=== PATIENT | male | born 1945 | race Caucasian/White ===

== ENCOUNTER 2017-12-01 17:13 | Emergency (ER) | payer OTHER ==
[~2017-12-01] VITALS: Ht 170.2 cm; Wt 93.6 kg
[2017-12-01 17:17] VITALS: TEMP 36.5; Ht 170.2 cm; Wt 93.6 kg
[2017-12-01 18:09] LABS: BASO % 0.3 %; BASO ABS # 0.02 K/uL (0-0.2); EOS % 2.3 %; EOS ABS # 0.14 K/uL (0-0.5); HEMATOCRIT 49.9 % (42-52); HEMOGLOBIN 16.8 g/dL (14.0-18.0); IG# 0.01 K/uL (0.00-0.02); LYMPH % 30.3 %; LYMPH ABS # 1.83 K/uL (1.2-3.4); MEAN CELL VOLUME 90.9 fL (80-100); MEAN CORPUSCULAR HEMOGLOBIN 30.6 pg (25-34); MEAN CORPUSCULAR HGB CONC 33.7 g/dl (32-36); MEAN PLATELET VOLUME 10.4 fL (7.4-10.4); MONO % 10.8 %; MONO ABS # 0.65 K/uL (0.11-0.59); NEUT % 56.1 %; NEUT ABS # 3.39 K/uL (1.4-6.5); PLATELET COUNT 157 K/uL (130-400); RED CELL DISTRIBUTION WIDTH CV 14.2 % (11.5-14.5); RED CELL DISTRIBUTION WIDTH SD 47.6 fL (36.4-46.3); WHITE BLOOD COUNT 6.04 K/uL (4.8-10.8)
[2017-12-01 18:17] LABS: INR 3.3 (0.9-1.1); PTT PATIENT 36.6 SECONDS (21.0-31.0)
[2017-12-01 18:33] LABS: CALCIUM 9.1 mg/dl (8.5-10.1); CREATININE 1.26 mg/dl (0.60-1.40); POTASSIUM 4.2 mmol/L (3.5-5.1)
[2017-12-01 18:36] LABS: TOTAL PROTEIN 7.3 gm/dl (6.4-8.2)
[2017-12-01] MEDS ORDERED: PRVC10 PO (18:53)
[2017-12-01] MEDS ORDERED: ASPI81TA28 PO (18:53)
[2017-12-01] MEDS ORDERED: LISI-461 PO (18:53)
[2017-12-01] MEDS ORDERED: WARF7.5T PO ×2 (18:53)
--- NOTE | 2017-12-01 19:14 | DIAGNOSTIC IMAGING REPORT ---
ABD/PELVIS WITHOUT FOR STONE CT DOSE: 1475.07 mGy.cm HISTORY: Hematuria hematuria TECHNIQUE: Multiaxial CT images of the abdomen and pelvis were performed without the use of intravenous and oral contrast according to the standard department stone protocol. A dose lowering technique was utilized adhering to the principles of ALARA. COMPARISON STUDY: None. FINDINGS: The lung bases are clear. The unenhanced liver, gallbladder, spleen, pancreas, and adrenal glands are unremarkable. No renal stones or hydronephrosis. No bowel wall thickening or obstruction. The pelvic organs are unremarkable. No suspicious lytic or blastic osseous lesions. Moderate sigmoid diverticulosis on a chronic basis. No evidence for acute diverticulitis. Bladder is midline. Prostate is mildly enlarged. Operative changes consistent with a left inguinal hernia repair present. IMPRESSION: No renal stones or hydronephrosis. Chronic sigmoid diverticulosis. Moderate prostatic enlargement. The above report was generated using voice recognition software. It may contain grammatical, syntax or spelling errors. Electronically signed by: Shola Jordan M.D. 12/01/2017 7:12 PM Dictated Date/Time: 12/01/2017 7:11 PM
[2017-12-01 20:02] VITALS: BP 132/80; PULSE 49; O2SAT 94
[2017-12-01] MEDS ORDERED: CIPROFLOXACIN 500 MG TAB PO STA ×2 (20:05→20:06)
[2017-12-01] MEDS ORDERED: CIPR-255 PO (20:14)
--- NOTE | 2017-12-01 22:31 | EMERGENCY ROOM VISIT NOTE ---
History Report prepared by Tara: Emmanuel Simmons Under the Supervision of: Dr. Juan Miguel Unger M.D. First contact with patient: 17:46 Chief Complaint: HEMATURIA Stated Complaint: BLOOD IN URINE Nursing Triage Summary: I noticed blood in my urine around noon. I went to [facility] and saw a PA. They took a urine sample I didnt have any clots at that time but now I do. History of Present Illness The patient is a 72 year old male who presents to the Emergency Room with complaints of persistent hematuria since 1200 today. He notes there was blood in his urine at noon today, so he went to [facility] outpatient clinic to be evaluated. They obtained a urine sample, though they did not give him any medication. He was instructed to go back tomorrow morning for blood work. He states that he is incontinent of his urine with mild leaking. He states the blood was not initially thick or clotted, though by 1500 he noticed blood clots in his underwear. He is currently taking Warfarin. He reports a history of a stroke 30 years ago due to a PFO. His INR is currently 3.3 and he is normally targeted for 2-3. He denies any pain or burning with urination. He denies any bleeding or bruising to any other area of his body. He denies any leg swelling. Pt denies LOC, headache, fevers, chills, diaphoresis, visual changes, neck pain , chest pain, breathing difficulties, nausea, vomiting, abdominal pain, back pain, melena, hematochezia, numbness, weakness, rash, or other complaints. Source of History: patient Onset: since 1200 today Position: other (penis-urethra) Quality: other (hematuria) Timing: other (persistent) Note: He denies any leg swelling, pain or burning with urination. He denies any bruising and bleeding in other areas of body. Review of Systems See HPI for pertinent positives and negatives. A total of ten systems were reviewed and were otherwise negative. Past Medical & Surgical Medical Problems: (1) Back contusion (2) PFO (patent foramen ovale) (3) Stroke Family History No pertinent family history Social History Smoking Status: Never Smoker Smokeless Tobacco Use: No Alcohol Use: none Drug Use: none Marital Status: single Housing Status: lives alone Occupation Status: employed Current/Historical Medications Scheduled Aspirin (Aspirin Ec), 81 MG PO DAILY Ciprofloxacin Hcl (Cipro), 500 MG PO BID Lisinopril (Lisinopril), 10 MG PO DAILY Pravastatin Sod (Pravastatin Sodium), 10 MG PO DAILY Warfarin Sodium (Coumadin), 11.25 MG PO 2XWK Warfarin Sodium (Coumadin), 7.5 MG PO 5XWK Allergies Coded Allergies: No Known Allergies (Unverified , 12/01/17) Physical Exam Vital Signs Date Time Temp Pulse Resp B/P (MAP) Pulse Ox O2 Delivery O2 Flow Rate FiO2 12/01/17 20:02 49 20 132/80 94 Room Air 12/01/17 17:17 36.5 58 18 196/84 96 Room Air Physical Exam GENERAL: Awake, alert, well-appearing, in no distress HENT: Normocephalic, atraumatic. Oropharynx unremarkable. EYES: Normal conjunctiva. Sclera non-icteric. NECK: Supple. No nuchal rigidity. FROM. No masses. RESPIRATORY: Clear to auscultation. No wheezes. No rales. Normal respiratory effort. CARDIAC: Normal rate. Normal rhythm. No murmurs. No rubs. Extremities warm and well perfused. Pulses equal. No JVD. GI: Soft, non-distended. No tenderness to palpation. No rebound or guarding. No masses. RECTAL: Deferred. MUSCULOSKELETAL: Atraumatic. Chest examination reveals no tenderness. The back is symmetrical on inspection without obvious abnormality. There is no CVA tenderness to palpation. No joint edema. LOWER EXTREMITIES: Calves are equal size bilaterally and non-tender. No edema. No discoloration. NEURO: Normal sensorium. No sensory or motor deficits noted. SKIN: No rash or jaundice noted. Medical Decision & Procedures ER Provider Diagnostic Interpretation: Radiology results as stated below per my review and radiologist interpretation: ABD/PELVIS WITHOUT FOR STONE CT DOSE: 1475.07 mGy.cm HISTORY: Hematuria hematuria TECHNIQUE: Multiaxial CT images of the abdomen and pelvis were performed without the use of intravenous and oral contrast according to the standard department stone protocol. A dose lowering technique was utilized adhering to the principles of ALARA. COMPARISON STUDY: None. FINDINGS: The lung bases are clear. The unenhanced liver, gallbladder, spleen, pancreas, and adrenal glands are unremarkable. No renal stones or hydronephrosis. No bowel wall thickening or obstruction. The pelvic organs are unremarkable. No suspicious lytic or blastic osseous lesions. Moderate sigmoid diverticulosis on a chronic basis. No evidence for acute diverticulitis. Bladder is midline. Prostate is mildly enlarged. Operative changes consistent with a left inguinal hernia repair present. IMPRESSION: No renal stones or hydronephrosis. Chronic sigmoid diverticulosis. Moderate prostatic enlargement. The above report was generated using voice recognition software. It may contain grammatical, syntax or spelling errors. Electronically signed by: Shola Jordan M.D. 12/01/2017 7:12 PM Dictated Date/Time: 12/01/2017 7:11 PM Laboratory Results 12/01/17 17:54 Red Blood Count 5.49, Mean Corpuscular Volume 90.9, Mean Corpuscular Hemoglobin 30.6, Mean Corpuscular Hemoglobin Concent 33.7, Mean Platelet Volume 10.4, Neutrophils (%) (Auto) 56.1, Lymphocytes (%) (Auto) 30.3, Monocytes (%) (Auto) 10.8, Eosinophils (%) (Auto) 2.3, Basophils (%) (Auto) 0.3, Neutrophils # (Auto ) 3.39, Lymphocytes # (Auto) 1.83, Monocytes # (Auto) 0.65, Eosinophils # (Auto ) 0.14, Basophils # (Auto) 0.02 12/01/17 17:54 Test 12/01/17 17:20 12/01/17 17:54 Urine Color RED Urine Appearance TURBID (CLEAR) Urine pH 6.0 (4.5-7.5) Urine Specific [place] >= 1.030 (1.000-1.030) Urine Protein 2+ (NEG) Urine Glucose (UA) NEG (NEG) Urine Ketones NEG (NEG) Urine Occult Blood 3+ (NEG) Urine Nitrite NEG (NEG) Urine Bilirubin NEG (NEG) Urine Urobilinogen NEG (NEG) Urine Leukocyte Esterase NEG (NEG) Urine RBC >30 /hpf (0-4) Urine WBC 10-30 /hpf (0-5) Urine Epithelial Cells 0-5 /lpf (0-5) Urine Bacteria 1+ (NEG) White Blood Count 6.04 K/uL (4.8-10.8) Red Blood Count 5.49 M/uL (4.7-6.1) Hemoglobin 16.8 g/dL (14.0-18.0) Hematocrit 49.9 % (42-52) Mean Corpuscular Volume 90.9 fL (80-100) Mean Corpuscular Hemoglobin 30.6 pg (25-34) Mean Corpuscular Hemoglobin Concent 33.7 g/dl (32-36) Platelet Count 157 K/uL (130-400) Mean Platelet Volume 10.4 fL (7.4-10.4) Neutrophils (%) (Auto) 56.1 % Lymphocytes (%) (Auto) 30.3 % Monocytes (%) (Auto) 10.8 % Eosinophils (%) (Auto) 2.3 % Basophils (%) (Auto) 0.3 % Neutrophils # (Auto) 3.39 K/uL (1.4-6.5) Lymphocytes # (Auto) 1.83 K/uL (1.2-3.4) Monocytes # (Auto) 0.65 K/uL (0.11-0.59) Eosinophils # (Auto) 0.14 K/uL (0-0.5) Basophils # (Auto) 0.02 K/uL (0-0.2) RDW Standard Deviation 47.6 fL (36.4-46.3) RDW Coefficient of Variation 14.2 % (11.5-14.5) Immature Granulocyte % (Auto) 0.2 % Immature Granulocyte # (Auto) 0.01 K/uL (0.00-0.02) Prothrombin Time 34.1 SECONDS (9.0-12.0) Prothromb Time International Ratio 3.3 (0.9-1.1) Activated Partial Thromboplast Time 36.6 SECONDS (21.0-31.0) Partial Thromboplastin Ratio 1.4 Anion Gap 3.0 mmol/L (3-11) Est Creatinine Clear Calc Drug Dose 58.6 ml/min Estimated GFR () 66.1 Estimated GFR (Non- 57.0 BUN/Creatinine Ratio 20.3 (10-20) Calcium Level 9.1 mg/dl (8.5-10.1) Total Bilirubin 0.5 mg/dl (0.2-1) Direct Bilirubin 0.1 mg/dl (0-0.2) Aspartate Amino Transf (AST/SGOT) 20 U/L (15-37) Alanine Aminotransferase (ALT/SGPT) 31 U/L (12-78) Alkaline Phosphatase 70 U/L (45-117) Total Protein 7.3 gm/dl (6.4-8.2) Albumin 4.0 gm/dl (3.4-5.0) Laboratory results reviewed by me Medications Administered Medications (Trade) Dose Ordered Sig/Casey Route Start Time Stop Time Status Last Admin Dose Admin Ciprofloxacin (Cipro Tab) 500 mg NOW STAT PO 12/01/17 20:05 12/01/17 20:06 DC 12/01/17 20:28 500 MG ED Course 1817: The patient was evaluated in room C9. A complete history and physical exam was performed. 2004: Ordered Cipro 500 mg PO 2005: Ordered Cipro 500 mg PO 2015: I reassessed the patient at this time. He is feeling better and resting comfortably. I discussed the results and treatment plan with the patient. I answered all pertaining questions that he had. He expressed understanding and verbalized agreement. The patient will be discharged home. Medical Decision Triage Nursing notes reviewed. The patient's presentation and history were concerning for hematuria. Etiologies such as UTI, coagulopathy, malignancy, renal colic, cystitis, as well as others were entertained. Patient was evaluated. He had a benign physical examination. Urinalysis Is obtained. Blood work obtained. He was found to have a supratherapeutic INR slightly. He did take his dose today. He will hold his dose tomorrow and Sunday morning before following up with his primary physician. The patient had unremarkable blood work otherwise. Urinalysis was concerning for infection. He underwent CT imaging which did not reveal any significant intra-abdominal pathology. Prostate enlargement was noted. The patient was informed. The patient will be started on Cipro. Given the symptoms I will put him on an extended course. I did discuss the effects with his Coumadin. He will need close monitoring as an outpatient. Culture was sent. The patient was given a dose for tonight as well as tomorrow morning. A prescription was sent to his pharmacy. If he worsens in any way he will be back. By the evaluation outlined above other emergent etiologies such as those listed in the differential, as well as others, were deemed relatively unlikely. The patient was educated about the findings as listed above. All questions were answered and the patient was pleased with the treatment. Return instructions were outlined and the patient was discharged in stable condition. The patient was referred to his PCP for follow-up for a recheck of the current condition. Medication Reconcilliation Current Medication List: was personally reviewed by me Blood Pressure Screening Patient's blood pressure: Elevated blood pressure Blood pressure disposition: Referred to PCP Impression Primary Impression: Hematuria Additional Impression: UTI (urinary tract infection) Scribe Attestation The scribe's documentation has been prepared under my direction and personally reviewed by me in its entirety. I confirm that the note above accurately reflects all work, treatment, procedures, and medical decision making performed by me. Departure Information Dispostion Home / Self-Care Prescriptions Ciprofloxacin Hcl (CIPRO) 500 Mg Tab 500 MG PO BID, #18 TAB Prov: Juan Miguel Unger MD 12/01/17 Referrals Ramírez Juarez, D[place] (PCP) Forms HOME CARE DOCUMENTATION FORM, IMPORTANT VISIT INFORMATION, WORK / SCHOOL INSTRUCTIONS Patient Instructions My [facility] Additional Instructions URINARY TRACT INFECTION INSTRUCTIONS: Ciprofloxacin(Cipro) 500mg: Take one pill twice daily for 10 days for your urine infection. All antibiotics can cause diarrhea. If this occurs and you feel worse or it does not resolve in 1-2 days follow up with your doctor or return to the Emergency Department as this could be signs of serious underlying problems. If you experience any pain in your tendons or any tendon injury return to the ER for re-evaluation. Any medication can cause an allergic reaction, stop the pills immediately and return to the ER for rash, hives, breathing difficulties, or swelling. Acetaminophen(Tylenol) may be used for fever or pain. Use 1000mg every six hours as needed. Avoid using more than 4000mg in a 24 hour period. Rest and drink plenty of fluids. Hold the Coumadin tomorrow And Sunday morning. Continue other Current medications. Return to the ER immediately for worsening or persistent abdominal pain, vomiting, fevers, back or flank pain, worsening of your condition, or as needed. Follow up with your primary physician within 2-3 days for a recheck of the current conditionand a recheck of your INR/Coumadin level. Problem Qualifiers
== END 2017-12-01 20:30 | disposition home or self-care (01) ==
LOC: C.EDB 17:15 → C.EDC 20:30
DX: R31.9 Hematuria, unspecified (principal); N39.0 Urinary tract infection, site not specified; I63.9 Cerebral infarction, unspecified; Z79.82 Long term (current) use of aspirin; Z79.01 Long term (current) use of anticoagulants; Z51.81 Encounter for therapeutic drug level monitoring

== ENCOUNTER 2025-08-19 05:42 | Observation (INO) ==
--- NOTE | 2025-08-10 08:55 | Anesthesiology Consultation ---
Date of Service August 10, 2025 Assessment & Plan (1) Encounter for pre-operative examination: ADDENDUM 08/12/25 1038= PCP Office visit 08/11/25= "... preop for laparoscopic hernia repair... wondering if Lovenox bridge would be necessary... 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 Patient cleared for surgery from low likelihood of per-operative complications per my assessment. He will be contacted by our coag clinic for plans on how to handle his coumadin before surgery..." Pacemaker check 07/23/25= [employer] device Implant date 12/26/2023 Battery is at 89% battery and has 9.50 years left. A pacing 74% RV pacing 1.3% AT/AF burden 0% Mode DDDR Per review of PCP note and pacemaker check- patient remains acceptable risk for surgery -Leatha Mtz PA-C - Check coags DOS (warfarin instructions per surgeon/prescriber) - Infectious disease screening: Per assessment on 08/07/25- No known recent infectious disease contacts or current infectious disease symptoms. - S/P Right ankle ORIF 02/03/25: Grade 2 view, MAC#3, ETT 7.5 + regional, [facility]. No issues noted per post-op anesthesia progress note. - [facility] cardio visit 07/10/25: "Pre-operative cardiac examination- Remains stable and asymptomatic from a cardiac standpoint.. Does not appear volume overloaded upon examination.. Functional capacity >4 METs.. EKG in office today with no acute ischemic changes or significant arrhythmias.. In terms of preop risk assessment, per Angel Criteria, patient was counseled that he would be placed at a low-moderate riskfor any adverse perioperative cardiovascular events associated with hernia repair surgery. Patient is on a good medication regimen and no other cardiac testing or interventions would further lower that risk.. Chronic heart failure with preserved ejection fraction, NYHA Class I-II-Recent ECHO (04/14/25) with preserved systolic function (LVEF 60-64%), moderate concentric LVH, mildly abnormal diastolic function, mild aortic regurgitation, mild mitral regurgitation, mild tricuspid regurgitation, and moderate pulmonary hypertension-Asymptomatic and appears euvolemic upon examination today.. Would consider restarting furosemide if he develops recurrent signs/symptoms of fluid accumulation.. Recent device check with normal functioning dual-chamber pacemaker with adequate battery life (9.75 yrs), stable pacing thresholds and no significant events.. Blood pressure well controlled today.." - Awaiting most recent pacer check ([facility] cardio). Patient is otherwise acceptable risk for surgery. Chart Review Chart Review: Acceptable Risk for Surgery and Patient NOT seen in Pre Admission Testing Consults Requested none History Surgery Operation Date: 08/19/25 07:30 Proposed Procedures p Robotic Assisted Incarcerated Ventral Hernia Repair - Haim Caruso DO, FACS Height/Weight Height: 5 ft 8 in Weight: 88.451 kg Allergies Allergy/AdvReac Type Severity Reaction Status Date / Time No Known Allergies Allergy Verified 08/19/25 05:53 Medications Home Medications Medication Instructions Recorded Confirmed Last Taken pravastatin 10 mg tablet 10 mg PO HS 11/27/23 08/19/25 08/18/25 14:00 tamsulosin 0.4 mg capsule 0.4 mg PO HS 11/27/23 08/19/25 08/18/25 14:00 warfarin 7.5 mg tablet 7.5 mg PO UD 11/27/23 08/19/25 08/15/25 acetaminophen 325 mg tablet 650 mg PO Q4 PRN Pain 01/30/25 08/19/25 07/29/25 lisinopril 5 mg tablet 5 mg PO QAM 01/30/25 08/19/25 08/18/25 10:00 Active Medications Generic Name Dose Route Start Last Admin Trade Name Freq PRN Reason Stop Dose Admin Lactated Ringer's 1,000 mls @ 15 mls/hr 08/19/25 06:00 08/19/25 06:22 Lr IV 08/20/25 05:59 15 mls/hr .Q24H BROOKE Administration Past Medical History Medical History BPH (benign prostatic hyperplasia) Chronic kidney disease, stage 3a History of COVID-19 2022, no residual symptoms History of stroke 1996, "Mild" [place] to be r/t PFO per patient, no deficits History of TIA (transient ischemic attack) 2011 (per [facility] records) Pt does not recall this Hyperlipidemia Hypertension Pacemaker Sharma, implanted 12/2023, Hx SSS Follows with [facility] cardio PFO (patent foramen ovale) Taking warfarin Scoliosis Past Family History Family History Unknown No problems noted. Other No family history of adverse response to anesthesia Past Surgical History Surgical History History of colonoscopy History of open reduction and internal fixation (ORIF) procedure (2024) Right ankle History of permanent cardiac pacemaker placement (12/26/23) [employer] MRI 2272 History of tonsillectomy Hx of hernia repair Social History Smoking Status: Never smoker Do You Dip or Chew Tobacco: No Hx Alcohol Use: Yes Alcohol type: beer alcohol intake frequency: holidays/special occasions only Hx Substance Use: No substance use type: does not use Physical Exam Vital Signs Last Vital Signs Temp 37.2 C 08/19/25 05:55 Pulse 62 08/19/25 05:55 Resp 18 08/19/25 05:55 BP 162/79 H 08/19/25 05:55 Pulse Ox 92 08/19/25 05:55 O2 Del Method Room Air 08/19/25 05:55 Lab Results Anesthesia Preop Results Results Anesthesia Widget: WBC 5.88 K/ul (4.8-10.8) 08/07/25 Hgb 16.9 g/dL (14.0-18.0) 08/07/25 Hct 50.5 % (42.0-52.0) 08/07/25 Plt 153 K/uL (130-400) 08/07/25 Na 140 mmol/L (136-145) 08/07/25 K 4.8 mmol/L (3.5-5.1) 08/07/25 Cl 105 mmol/L (98-107) 08/07/25 CO2 30 mmol/L (21-32) 08/07/25 BUN 20 mg/dl (6-23) 08/07/25 Creat 1.26 mg/dl (0.6-1.4) 08/07/25 Glucose Level 104 mg/dl (70-99(Fasting)) H 08/07/25 Testing Electrocardiogram Date: 08/07/25 Atrial-paced rhythm at 60bpm. LAFB. Moderate voltage criteria for LVH, may be normal variant (R in aVL, Neri product). Chest X-Ray Date: 08/07/25 FINDINGS: Stable pacemaker. Heart size and pulmonary vasculature are normal. No consolidation or pleural effusion. Stable small hiatal hernia. IMPRESSION: No acute findings. Echocardiogram Date: 12/11/23 EF: 55-59% LV Function: normal RWMA: + none mild cLVH. mild aortic sclerosis, no Aortic stenosis. mild AR. mild MR. mild TR. mild AL. 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 Left carotid artery duplex examination indicates evidence of less than 50% stenosis of the internal carotid artery.
--- NOTE | 2025-08-18 11:23 | History & Physical Report ---
Date of Service August 18, 2025 Assessment & Plan (1) Recurrent ventral hernia: Plan: symptomatic recurrent ventral hernia, with suspected recent incarceration resulting in partial small bowel obstruction that was reduced in the emergency department. Given his symptoms and risk of recurrence of the incarceration, we would recommend repair. He would need clearance from cardiology and his PCP prior to surgery. Given his PFO and history of stroke, we will discuss whether he needs a Lovenox bridge during his Coumadin cessation prior to surgery. plan for robotic recurrent ventral hernia repair risks discussed to include but not limited to bleeding, infection, recurrence, chronic pain, damage to surrounding structures, need for future or more extensive surgery, and risks of anesthesia educated on signs and symptoms of incarceration, obstruction, and strangulation Preop risk assessment from PCP and cardiology completed Held Coumadin prior to surgery PT/PTT/INR day of surgery return precautions given, call with questions or concerns (2) Stroke: (3) PFO (patent foramen ovale): (4) Pacemaker: (5) Chronic kidney disease, stage 3a: (6) Hypertension: (7) Hyperlipidemia: History of Present Illness Primary Care Provider: Ramírez Juarez, DO Here for surgery. Initially referred for recurrent ventral hernia. He had an open repair with mesh performed around 20 to 30 years ago. Did well until a few years ago when he noticed a small lump in the area. This was slightly superior into the right of the original repair. He has been seen by his PCP and it has been monitored on a regular basis. He was not having any issues until yesterday when he awoke and noticed that he was having some general discomfort in the area. It became hard and he started having some nausea and worsening cramping pain. He was at PT and then drove himself to urgent care who referred him to the emergency department. The emergency department physician was able to reduce it partially at the bedside. A CT scan showed a recurrence of his umbilical/ventral hernia repair containing fat but no bowel involvement or bowel obstruction. He was feeling much better after it was reduced and he was discharged home with plans to follow-up with general surgery the following day. He has been wearing a binder that he was given in the ER but was a little large. Only prior abdominal surgery was the prior open umbilical hernia repair. He does take Coumadin for a PFO with history of stroke. He had an ankle fracture in January and was bridged with Lovenox. He does follow with cardiology on a regular basis and also has a pacer/defibrillator. He is active and works at the [employer], and is able to walk 2 flights of stairs without stopping because of shortness of breath. No changes since last visit Allergies Allergy/AdvReac Type Severity Reaction Status Date / Time No Known Allergies Allergy Verified 08/07/25 13:17 Home Medications Medication Instructions Recorded Confirmed Type pravastatin 10 mg tablet 10 mg PO HS 11/27/23 08/07/25 History tamsulosin 0.4 mg capsule 0.4 mg PO HS 11/27/23 08/07/25 History warfarin 7.5 mg tablet 7.5 mg PO UD 11/27/23 08/07/25 History acetaminophen 325 mg tablet 650 mg PO Q4 PRN Pain 01/30/25 08/07/25 History lisinopril 5 mg tablet 5 mg PO QAM 01/30/25 08/07/25 History Past Med/Surg History Problem List Recurrent ventral hernia Encounter for pre-operative examination Lumbar spondylosis Other intervertebral disc degeneration, lumbar region with discogenic back pain only Scoliosis of lumbar region due to degenerative disease of spine in adult 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 Medical History BPH (benign prostatic hyperplasia) Chronic kidney disease, stage 3a History of COVID-19 2022, no residual symptoms History of stroke 1996, "Mild" [place] to be r/t PFO per patient, no deficits History of TIA (transient ischemic attack) 2011 (per [facility] records) Pt does not recall this Hyperlipidemia Hypertension Pacemaker Sharma, implanted 12/2023, Hx SSS Follows with [facility] cardio PFO (patent foramen ovale) Taking warfarin Scoliosis Surgical History History of colonoscopy History of open reduction and internal fixation (ORIF) procedure (2024) Right ankle History of permanent cardiac pacemaker placement (12/26/23) Sharma Assurity MRI [id number] History of tonsillectomy Hx of hernia repair Family History Unknown No problems noted. Other No family history of adverse response to anesthesia Social History (Updated 06/25/25 @ 15:11 by Adriana Pimentel RN) Smoking Status: Never smoker Second Hand Exposure: No; Do You Dip or Chew Tobacco: No; Tobacco Cessation Education Requested by Patient: No Hx Alcohol Use: Yes Alcohol type: beer Alcohol Intake Frequency: Monthly or Less Hx Substance Use: No Preferred Language: Belarusian Communication Ability: Effective Cnc Lathe Machine Operator Required: No Beliefs That Will Affect Care: None marital status: Current Living Situation: Spouse Current Living Situation Comment: currently residing at [facility] current occupational status: retired How many Children do You have: 2 Other Information That Helps Us Care for You: No Feels Safe at Home: Yes Safety Concerns: Feels Safe At This Time during the past year weight has: decreased > 10 lbs Assistive Devices: Glasses Review of Systems Review of Systems: All systems reviewed & are unremarkable except as noted in HPI & below Physical Exam Constitutional: WD/WN, vitals as above + obese Respiratory: normal respiratory effort, lungs clear to auscultation Cardiovascular: RRR, no murmur, no edema Chest (Breasts): Chest: + pacemaker Gastrointestinal (Abdomen): normal bowel sounds, soft, nontender, no hepatosplenomegaly Inspection/Auscultation: + abdominal surgical scar Percussion/Palpation: + hernia (Partially reducible ventral hernia superior to the umbilicus) Results & Data Results & Data Diagnostic Findings CT personally reviewed and interpreted agree with the assessment of incarcerated fat-containing ventral hernia. The defect appears to be about 3 to 4 cm in size. Some dilated bowel, but no obvious bowel involvement or obstruction. ABDOMEN AND PELVIS CT WITH IV CONTRAST CT DOSE: 1357.31 mGy.cm HISTORY: hernia, vomiting TECHNIQUE: Multiaxial CT images of the abdomen and pelvis were performed following the IV administration of 90 cc of Optiray, A dose lowering technique was utilized adhering to the principles of ALARA. COMPARISON STUDY: 12/01/2017 FINDINGS: There is a small hiatal hernia, mildly increased in size. ABDOMEN: Liver, gallbladder, spleen, pancreas, and adrenal glands are unremarkable. Kidneys show no hydronephrosis. There are moderate atherosclerotic calcifications. No abdominal aortic aneurysm. There is a fat-containing periumbilical hernia measuring 6 cm, increased in size. The hernia has a narrow neck. There is minimal soft tissue stranding within the fat within the hernia, possible minimal inflammation. Pelvis: Prostate is markedly enlarged. Urinary bladder is mildly distended. There is extensive sigmoid diverticulosis. No acute diverticulitis. There are a few mildly distended small bowel loops at the lower abdomen and pelvis measuring up to 3.5 cm diameter. Transition zone is at the right lower quadrant likely at the distal jejunum or proximal ileum. No other bowel distention seen. No free fluid, free air, or abscess. No enlarged adenopathy. Osseous structures: There is lumbar degenerative disc disease most advanced at L2-3. There is minimal scoliosis. No acute osseous findings. IMPRESSION: 1. Increased size of the periumbilical fat-containing hernia with possible minimal inflammatory changes. 2. A few mildly distended small bowel loops at the lower abdomen and pelvis of uncertain significance. If symptoms worsen, follow-up imaging would be suggested to evaluate for progressive small bowel obstruction. 3. No other acute findings seen. Otherwise as described. PG Care Time/CCT Total # of Minutes Spent Total Time Spent with Patient: Total time spent is greater than 50% in coordination of care (as documented) at patient's floor/unit and/or counseling patient: Coding Level of Care Code None Diagnoses Recurrent ventral hernia K43.2 Stroke I63.9 PFO (patent foramen ovale) Q21.1 Pacemaker Z95.0 Chronic kidney disease, stage 3a N18.31 Hypertension I10 Hyperlipidemia E78.5
[2025-08-19] MEDS: LR 15ML/HR IV SCH (06:22)
[2025-08-19] MEDS ORDERED: ONDANSETRON INJ 2 MG/ML 2 ML VIAL IV PRN ×2 (06:44→09:26)
[2025-08-19] MEDS ORDERED: HYDROmorphone INJ 1 MG/ML SYRINGE IV PRN (06:44)
[2025-08-19] MEDS ORDERED: PROMETHAZINE HCL 6.25 MG in SODIUM CHLORIDE 0.9% 50 ML IV PRN (06:44)
[2025-08-19] MEDS ORDERED: ATROPINE SULFATE 0.1 MG/ML 10ML SYR IV PRN (06:44)
[2025-08-19 06:45] LABS: INR 1.2 (0.9-1.1); Partial Thromboplastin Time 27 Seconds (21-31); Prothrombin Time 12.4 Seconds (9.0-12.0)
[2025-08-19] MEDS ORDERED: ONDANSETRON INJ 2 MG/ML 2 ML VIAL ONE (06:52)
[2025-08-19] MEDS ORDERED: LIDOCAINE 2% 2 ML VIAL/AMP(20MG/ML) INFIL ONE (06:52)
[2025-08-19] MEDS ORDERED: GLYCOPYRROLATE 0.2 MG/ML VIAL ONE (06:52)
[2025-08-19] MEDS ORDERED: ROCURONIUM BROMIDE 10 MG/ML 5 ML VIAL IV ONE (06:52)
[2025-08-19] MEDS ORDERED: PROPOFOL IV EMULSION 10 MG/ML 20 ML VIAL IV ONE (06:52)
[2025-08-19] MEDS ORDERED: DEXAMETHASONE SOD INJ 4 MG/ML VIAL ONE (06:52)
[2025-08-19] MEDS ORDERED: MIDAZOLAM HCL 1 MG/ML 2ML VIAL ONE (06:53)
[2025-08-19] MEDS ORDERED: SUGAMMADEX SODIUM 200 MG/2 ML VIAL IV ONE (06:53)
--- NOTE | 2025-08-19 07:33 | History & Physical Bridge Note ---
Date of Service August 19, 2025 History & Physical Bridge Note I have examined the patient, reviewed the History & Physical and in the interval since the performance of the History & Physical I have noted the following changes of clinical significance: no changes noted
[2025-08-19] MEDS: BUPIVACAINE 0.5 % 5 MG/1 ML MPF 30ML VIAL ONE (09:11)
[2025-08-19] MEDS: BUPIVACAINE LIPOSOME 1.3% 266 MG/20 ML VIAL ONE (09:11)
--- NOTE | 2025-08-19 09:17 | Operative Report ---
PG Post Operative Report Pre & Post Diagnosis Operation Date: 08/19/25 07:30 Pre-Op Diagnosis: Recurrent incarcerated ventral Hernia Post-Op Diagnosis: Recurrent incarcerated ventral Hernia, total defect repair 4 cm I identified the patient and participated in the time-out.: Yes Procedure Operation Date: 08/19/25 07:30 Actual Procedures p Robotic Assisted Incarcerated Ventral Hernia Repair(Not Applicable) - Haim Caruso DO, LAURA Surgeon Haim Caruso DO, LAURA Table Saw Operator Brittani Napoles Estimated Blood Loss 5 Findings Consistent with Post-Op Diagnosis Recurrent ventral hernia containing incarcerated omentum reduced. 2 x 1 cm defect, additional 5 mm defect 1 cm inferior to this. Repaired with #0 permanent V-Loc suture, total length of repair 4 cm. Mesh cut to 6 x 4 cm oval, sewn into place with 2 oh V-Loc absorbable suture. Exparel injected, binder placed. Specimens None Anesthesia Type General Complications none Disposition Accompanied Patient To Recovery: No Disposition: Recovery Room Indications 80-year-old male with symptomatic incarcerated recurrent ventral hernia, plan for robotic ventral hernia repair. The risks of the procedure were discussed, all questions were answered, and the patient agreed to proceed with surgery as planned. Description of Procedure The patient was properly identified, consented, and taken to the operating room where he was placed in the supine position. General endotracheal anesthesia was induced. SCDs and a safety belt were placed. A bump was placed under the p atient's left side and the bed was extended. Preoperative antibiotics were administered. The patient's abdomen were prepped and draped in the standard sterile fashion. Surgical timeout was performed and all parties were in agreement that this was the correct patient and procedure to be performed and we continued as planned. An incision was made in the left upper abdomen. The Veress needle was inserted and saline drop test confirmed entry into the abdomen. The abdomen was insufflated with carbon dioxide which the patient tolerated without incident. The Veress needle was removed and the abdomen was entered using the Optiview technique and a 5 mm camera. The introducer was removed and the camera reinserted. No damage from initial trocar placement or Veress needle placement was identified. There were no abnormalities in the 4 quadrants of the abdomen. A incarcerated ventral hernia containing omentum was identified. 8 mm robotic ports were then placed in the left lower quadrant and left left lateral abdomen. The robot was docked, and the camera and instruments were inserted. The incarcerated omentum was reduced. The defect measured approximately 2 x 1 cm in size. The peritoneum was stripped down inferior to this and there was evidence of a recurrent umbilical hernia 1 cm inferior to the defect. The fascial defect tear measured about 5 mm in size. I then chose to perform a IPOM repair. The fascial defect was closed with a running #0 nonabsorbable barbed suture. The total vertical distance of the repair was about 4 cm in size. A piece of surgi-mesh was cut to a 6 x 4 cm oval and placed into the abdomen. A Clark-Neto device was then placed through the central aspect of the repair and the mesh was pulled to the anterior abdominal wall and oriented appr opriately. The mesh was then sewn into place with a 2-0 running absorbable V- Loc suture x2. Exparel was injected. The robot was undocked and the ports were removed. The skin of all port sites were closed with 4-0 Monocryl subcuticular suture, and Dermabond was placed over the incisions. An abdominal binder was placed. The patient was extubated in the operating room and taken to the PACU for recovery without apparent incident. All sponge, instrument, and needle counts were correct at the conclusion of the procedure. The patient tolerated the procedure well. The physician's assistant office manager was present and scrubbed for the entirety of the procedure, and was critical in positioning the patient, prepping and draping, retraction and exposure, driving the laparoscope, assistance with exchange of the robotic instruments, closure of the incisions, and placement of the dressings. I attest to the content of the Intraoperative Record and any orders documented therein. Any exceptions are noted below.
[2025-08-19] MEDS ORDERED: ACETAMINOPHEN 325 MG TAB PO PRN (09:26)
[2025-08-19] MEDS ORDERED: MoRPHine SULFATE 4 MG/ML 1 ML CARP\\VIAL IV PRN (09:26)
[2025-08-19] MEDS ORDERED: MoRPHine SULFATE 2 MG/ML CARP IV PRN (09:26)
[2025-08-19] MEDS ORDERED: PHENYLEPHRINE 100MCG/ML 5ML SYR ONE (09:27)
--- NOTE | 2025-08-19 13:20 | Anesthesiology Progress Note ---
Date of Service August 19, 2025 Anesthesia Post Procedure Vital Signs Vital Signs: Temp Pulse Pulse Resp BP BP Pulse Ox 08/19/25 12:50 36.4 C L 60 16 158/97 H 98 08/19/25 11:50 36.4 C L 60 16 161/83 H 99 08/19/25 11:20 36.3 C L 60 16 155/79 H 94 08/19/25 10:50 36.4 C L 60 16 153/84 H 90 08/19/25 10:40 36.4 C L 60 14 136/81 95 08/19/25 10:30 60 16 143/84 H 93 08/19/25 10:20 60 15 155/84 H 93 08/19/25 10:10 62 13 145/79 H 97 08/19/25 10:00 60 17 142/81 H 91 08/19/25 09:50 60 11 L 138/75 95 08/19/25 09:40 60 10 L 140/81 97 08/19/25 09:31 35.5 C L 50 L 16 129/81 96 08/19/25 05:55 37.2 C 62 18 162/79 H 92 O2 Del Method O2 Flow Rate 08/19/25 12:50 Nasal Cannula 2 08/19/25 11:50 Nasal Cannula 2 08/19/25 11:20 Room Air 08/19/25 10:50 Nasal Cannula 2 08/19/25 10:40 Room Air 08/19/25 10:30 Nasal Cannula 1 08/19/25 10:20 Nasal Cannula 1 08/19/25 10:10 Nasal Cannula 3 08/19/25 10:00 Room Air 08/19/25 09:50 Room Air 08/19/25 09:40 Oxymask 2 08/19/25 09:31 Oxymask 7 08/19/25 05:55 Room Air Pain Intensity Abdomen: Pain Intensity: 4 Transfer of Care Handoff Completed per policy Notes Mental Status: alert / awake / arousable and participated in evaluation Patient Amnestic to Procedure: Yes Nausea / Vomiting: adequately controlled Pain: adequately controlled Airway Patency, RR, SpO2: see Notes below BP & HR: stable & adequate Hydration State: stable & adequate Anesthetic Complications: no major complications apparent Notes: Pt emerged without incident and met criteria for discharge from PACU. However, in phase 2 pt demonstrated inability to maintain SaO2 off oxygen. Pt is awake and despite deep breathing and use of incentive spirometer, SaO2 will drop to low 70's when off O2. Lungs are clear to auscultation. There was no vomiting or evidence of aspiration. Discussed w surgeon and agreed to consult hospitalist for evaluation and possible admission.
--- NOTE | 2025-08-19 16:11 | XRay Report ---
Clinical History: Hypoxia Technique: 2 frontal views of the chest were obtained Comparison is made to the prior examination dated 08/07/2025 Findings: There is suspected mild pulmonary vascular congestion. The heart size is the upper limit of normal. No pleural effusion or pneumothorax is seen. There is mild patchy right lung base opacity, which could be due to either atelectasis or pneumonia. There is mild left lung base atelectasis. There is a left chest wall pacemaker device Impression: 1. Mild pulmonary vascular congestion 2. Right lung base opacity, which could be due to either atelectasis or pneumonia ACT 112: Positive. There are findings on this exam that require communication between the performing entity and the patient following Patient Test Result Information Act ([place] ACT 112) guidelines. Electronically signed by Kt Pearl 08-19-2025 4:11 PM
--- NOTE | 2025-08-19 16:17 | History & Physical Report ---
Date of Service August 19, 2025 Assessment & Plan (1) Acute on chronic heart failure with preserved ejection fraction (HFpEF): Plan: #Acute respiratory insufficiency post op Patient is 80 year old male with PMH HTN, dyslipidemia, CKD III, SSS s/p pacemaker, patent foramen ovale, history of CVA, anticoagulated on warfarin, chronic HFpEF, BPH seen at request of general surgery and anesthesia for postop hypoxia. Requiring 2L oxygen via NC with sats 96% 04/14/2025 echo: EF: 60-64%, grade 1 diastolic dysfunction, moderate aortic valve sclerosis, mild aortic valve regurgitation, mild mitral regurgitation, mild tricuspid regurgitation, estimated pulmonary artery systolic pressure 40-45 mmHg Received 2L IVF pre&post op CXR: Mild pulmonary vascular congestion. Right lung base opacity, which could be due to either atelectasis or pneumonia Stop IVF Give Lasix 10mg IV now, monitor response Monitor I's & O's, daily weight, low sodium diet Supplemental oxygen, wean as able Incentive spirometry CBC, BMP in am CXR in am #S/P Ventral Hernia Repair Post op day# 0 S/P ventral hernia repair by Dr Caruso Wound management per general surgery Continue incentive spirometry Scheduled Tylenol for pain. Oxycodone prn mod-severe pain #HTN Continue lisinopril #Patent foramen ovale #H/O CVA Anticoagulated on warfarin INR: 1.3. Warfarin had been held prior to surgery General surgery suggests restarting warfarin on 08/20/25 Per Coumadin clinic recommendations - 15mg on restart day followed by 7.5mg all other days with recheck INR on 08/31/25 #CKD III Baseline Cr: 1.2 #SSS S/P Pacemaker Paced rhythm on EKG #BPH Continue tamsulosin DVT Prophylaxis SCDs for now Admit telemetry Full Code as per discussion with pt Follows with Dr Ramírez Juarez for routine care Pt was seen and care coordinated with Dr Fuller. See addendum I spent a total of 65 minutes reviewing notes, outpatient records, labs, medication, coordinating, documenting and providing care for this patient excluding time spent in the performance of separately billed services and excluding time spent by another provider/QHP. History of Present Illness Chief Complaint: Hypoxia Primary Care Provider: Ramírez Juarez DO Patient is 80 year old male with PMH HTN, dyslipidemia, CKD III, SSS s/p pacemaker, patent foramen ovale, history of CVA, anticoagulated on warfarin, chronic HFpEF, BPH seen at request of general surgery and anesthesia for postop hypoxia. S/P ventral hernia repair today by Dr Caruso. Post op in [facility] patient unable to be weaned from oxygen and becomes hypoxic on room air despite incentive spirometry efforts. Otherwise vital stable. Patient has received 2 L IVF. Patient denies chest pain, shortness of breath. He reports he uses stationary exercise bike for 10 minutes and treadmill for 10 minutes without any shortness of breath or chest pain. Denies cough. Reports chronic rhinorrhea in am the resolves with blowing nose in am. Reports history of right tibia fracture January 2025 and has subsequent chronic RLE edema. States several months ago having LE edema and was started on Lasix daily however patient reports didn't feel had much difference in edema so he stopped taking it. Reports last BM yesterday. States post op having some abdominal pain with movement, otherwise at rest reports is comfortable. Denies fever/chills, diaphoresis, N/V/D/C, WEINER, dizziness, syncope, orthopnea, palpitations, cough, sore throat, choking, paresthesias, weakness, rashes, urinary symptoms. Patient to be admitted for further workup and treatment. Allergies Allergy/AdvReac Type Severity Reaction Status Date / Time No Known Allergies Allergy Verified 08/19/25 05:53 Home Medications Medication Instructions Recorded Confirmed Type pravastatin 10 mg tablet 10 mg PO HS 11/27/23 08/19/25 History tamsulosin 0.4 mg capsule 0.4 mg PO HS 11/27/23 08/19/25 History warfarin 7.5 mg tablet 7.5 mg PO UD 11/27/23 08/19/25 History acetaminophen 325 mg tablet 650 mg PO Q4 PRN Pain 01/30/25 08/19/25 History lisinopril 5 mg tablet 5 mg PO QAM 01/30/25 08/19/25 History oxycodone 5 mg tablet 5 - 10 mg (1 - 2 x 5 mg) PO 08/19/25 Rx .[id number] PRN pain, for initial therapy, max 6 tabs per day #15 tabs Past Med/Surg History Problem List Acute on chronic heart failure with preserved ejection fraction (HFpEF) Recurrent ventral hernia Encounter for pre-operative examination Lumbar spondylosis Other intervertebral disc degeneration, lumbar region with discogenic back pain only Scoliosis of lumbar region due to degenerative disease of spine in adult 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 Medical History PFO (patent foramen ovale) Taking warfarin History of COVID-19 2022, no residual symptoms Hyperlipidemia Pacemaker Sharma, implanted 12/2023, Hx SSS Follows with [facility] cardio Scoliosis BPH (benign prostatic hyperplasia) Chronic kidney disease, stage 3a History of TIA (transient ischemic attack) 2011 (per [facility] records) Pt does not recall this History of stroke 1996, "Mild" Layton to be r/t PFO per patient, no deficits Hypertension Surgical History H/O ventral hernia repair (08/19/25) Robotic Assisted Incarcerated Ventral Hernia Repair(Not Applicable) - Haim Caruso, , FACS History of open reduction and internal fixation (ORIF) procedure (2024) Right ankle History of colonoscopy History of tonsillectomy History of permanent cardiac pacemaker placement (12/26/23) Sharma Assurity MRI 2272 Hx of hernia repair Family History Unknown No problems noted. Other No family history of adverse response to anesthesia Social History Smoking Status: Never smoker Second Hand Exposure: No; Do You Dip or Chew Tobacco: No; Tobacco Cessation Education Requested by Patient: No Hx Alcohol Use: Yes Alcohol type: wine Alcohol Intake Frequency: Monthly or Less Hx Substance Use: No Preferred Language: Slovak Communication Ability: Effective Mailroom Messenger Required: No Beliefs That Will Affect Care: None marital status: Current Living Situation: Spouse Current Living Situation Comment: currently residing at [facility] current occupational status: retired How many Children do You have: 2 Other Information That Helps Us Care for You: No Feels Safe at Home: Yes Safety Concerns: Feels Safe At This Time during the past year weight has: decreased > 10 lbs Assistive Devices: Glasses Review of Systems Review of Systems: All systems reviewed & are unremarkable except as noted in HPI & below Physical Exam Physical Exam: General: no distress, WDWN Head: normocephalic, atraumatic Eyes: conjunctiva non-injected, anicteric ENT: normal inspection external ears, nose, mucous membranes moist Neck: supple, trachea midline Lungs: no respiratory distress on 2L O2 via NC, +diminished breath sounds bases CV: RRR, no murmur, trace pretibial edema Abd: normal BS, soft, +surgical incisions with good edge approximation without bleeding or discharge, +ecchymosis surrounding incision sites, +mild tenderness primarily over incision sites Ext: no cyanosis, no calf tenderness Neuro: A&O x 3, no focal deficits noted, normal affect Skin: warm, dry Results & Data Results & Data Vital Signs (Past 12 Hours) Vital Signs Temp Pulse Pulse Resp BP BP Pulse Ox 08/19/25 16:00 36.4 C L 61 16 154/81 H 95 08/19/25 14:50 36.5 C 60 16 146/79 H 94 08/19/25 13:50 36.4 C L 60 16 147/86 H 96 08/19/25 12:50 36.4 C L 60 16 158/97 H 98 08/19/25 11:50 36.4 C L 60 16 161/83 H 99 08/19/25 11:20 36.3 C L 60 16 155/79 H 94 08/19/25 10:50 36.4 C L 60 16 153/84 H 90 08/19/25 10:40 36.4 C L 60 14 136/81 95 08/19/25 10:30 60 16 143/84 H 93 08/19/25 10:20 60 15 155/84 H 93 08/19/25 10:10 62 13 145/79 H 97 08/19/25 10:00 60 17 142/81 H 91 08/19/25 09:50 60 11 L 138/75 95 08/19/25 09:40 60 10 L 140/81 97 08/19/25 09:31 35.5 C L 50 L 16 129/81 96 08/19/25 05:55 37.2 C 62 18 162/79 H 92 O2 Del Method O2 Flow Rate 08/19/25 16:00 Nasal Cannula 08/19/25 14:50 Nasal Cannula 2 08/19/25 13:50 Nasal Cannula 2 08/19/25 12:50 Nasal Cannula 2 08/19/25 11:50 Nasal Cannula 2 08/19/25 11:20 Room Air 08/19/25 10:50 Nasal Cannula 2 08/19/25 10:40 Room Air 08/19/25 10:30 Nasal Cannula 1 08/19/25 10:20 Nasal Cannula 1 08/19/25 10:10 Nasal Cannula 3 08/19/25 10:00 Room Air 08/19/25 09:50 Room Air 08/19/25 09:40 Oxymask 2 08/19/25 09:31 Oxymask 7 08/19/25 05:55 Room Air Laboratory Results Short CBC 08/19/25 Range/Units 16:26 WBC 8.52 (4.8-10.8) K/ul Hgb 16.2 (14.0-18.0) g/dL Hct 48.3 (42.0-52.0) % Plt Count 162 (130-400) K/uL BMP 08/19/25 16:26 Sodium 137 Potassium 4.6 Chloride 102 Carbon Dioxide 27 BUN 21 Creatinine 1.16 Glucose 195 H Calcium 8.9 Liver Function 08/19/25 Range/Units 16:26 Total Bilirubin 0.9 (0.2-1.0) mg/dl AST 14 (13-39) U/L ALT 9 (7-52) U/L Alkaline Phosphatase 62 (34-104) U/L Albumin 4.1 (3.4-5.0) gm/dl Diagnostic Findings Chest X-Ray 08/19/25 15:30 Clinical History: Hypoxia Technique: 2 frontal views of the chest were obtained Comparison is made to the prior examination dated 08/07/2025 Findings: There is suspected mild pulmonary vascular congestion. The heart size is the upper limit of normal. No pleural effusion or pneumothorax is seen. There is mild patchy right lung base opacity, which could be due to either atelectasis or pneumonia. There is mild left lung base atelectasis. There is a left chest wall pacemaker device Impression: 1. Mild pulmonary vascular congestion 2. Right lung base opacity, which could be due to either atelectasis or pneumonia ACT 112: Positive. There are findings on this exam that require communication between the performing entity and the patient following Patient Test Result Information Act ([place] ACT 112) guidelines. Electronically signed by Kt Pearl 08-19-2025 4:11 PM ECG Additional Comments: paced rhythm, LAFB per my interpretation Code Status & VTE Plan VTE Prophylaxis Plan VTE Prophylaxis will be ordered: Yes Supervising Physician Co-Signing Physician Notes I have seen and discussed the case with the collaborating advanced practitioner. I agree with the above H&P. I have reviewed and confirmed the patients medical history, the findings on physical examination, and the patients diagnosis and treatment plan with Shawna SILVER and agree with the information documented. evaluated patient in [facility]. able to stand and urinate by self in bedside urinal. communicative and pleasant. Reports no respiratory distress. Does endorse pain with movement but states it settles after some time. Exam without audible crackles. #Acute on chronic HFpEF #Acute resp insufficiency appears volume overloaded on XRAY s.p IV lasix encourage IS wean o2 as able rest of plan as above I spent a total of 15 minutes coordinating, documenting, and providing care for this patient excluding time spent in the performance of separately billed services. All of the aforementioned completed outside of collaborating with the assigned advanced practitioner for a full treatment plan. I have reviewed the advanced practitioner's documentation, and I agree with, and take responsibility for the plan of care
[2025-08-19] MEDS: FUROSEMIDE INJ 20 MG/2 ML VIAL IV ONE (16:35)
[2025-08-19 16:51] LABS: Hematocrit (blood only) 48.3 % (42.0-52.0); Hemoglobin 16.2 g/dL (14.0-18.0); Mean Corpuscular Hemoglobin 29.6 pg (25.0-34.0); Mean Corpuscular Volume 88.1 fL (80.0-100.0); Platelet Count 162 K/uL (130-400); RDW Standard Deviation 45.3 fL (36.4-46.3); Red Blood Count 5.48 M/uL (4.70-6.10); White Blood Count 8.52 K/ul (4.8-10.8)
[2025-08-19 17:02] LABS: Alanine Aminotransferase 9.0 U/L (7-52); Albumin Globulin Ratio 1.6 (0.9-2); Albumin Level 4.1 gm/dl (3.4-5.0); Alkaline Phosphatase 62.0 U/L (34-104); Anion Gap 8.0 (3-11); Bilirubin,Total 0.9 mg/dl (0.2-1.0); Blood Urea Nitrogen 21.0 mg/dl (6-23); Calcium 8.9 mg/dl (8.6-10.3); Carbon Dioxide 27.0 mmol/L (21-32); Chloride 102.0 mmol/L (98-107); Creatinine Clr Calc Pharmacy 54.8 ml/min; Globulin 2.5 gm/dl (2.5-4.0); Glucose 195.0 mg/dl (70-99(Fasting)); Magnesium 1.9 mg/dl (1.7-2.4); Potassium 4.6 mmol/L (3.5-5.1); Sodium 137.0 mmol/L (136-145); Total Protein 6.6 gm/dl (6.0-8.3)
[2025-08-19] MEDS: ACETAMINOPHEN 500 MG TAB PO SCH (17:10)
[2025-08-19 17:12] LABS: Immature Granulocytes # (auto) 0.03 K/uL (0.01-0.20); Immature Granulocytes % (auto) 0.4 %
[2025-08-19] MEDS ORDERED: MAGNESIUM HYDROXIDE SUSP 30 ML UDC PO PRN (17:43)
[2025-08-19] MEDS: SODIUM CHLORIDE 0.9% 1,000 ML IV SCH (18:11)
[2025-08-19] MEDS: PRAVASTATIN SOD 10 MG TAB PO SCH (19:51)
[2025-08-19] MEDS: TAMSULOSIN HCL 0.4 MG CAP PO SCH (19:51)
[2025-08-19] MEDS: CALCIUM CARBONATE 500 MG CHEWABLE TAB PO ONE (21:30)
[2025-08-19] MEDS: FAMOTIDINE 20MG IV PUSH 20 MG/5 ML SYR IV SCH (21:36)
[2025-08-20 05:08] VITALS: RESP 19
[2025-08-20 06:23] LABS: Hematocrit (blood only) 43.9 % (42.0-52.0); Hemoglobin 14.9 g/dL (14.0-18.0); Mean Corpuscular Hemoglobin 29.9 pg (25.0-34.0); Mean Corpuscular Volume 88.2 fL (80.0-100.0); Platelet Count 149 K/uL (130-400); RDW Standard Deviation 45.7 fL (36.4-46.3); Red Blood Count 4.98 M/uL (4.70-6.10); White Blood Count 8.74 K/ul (4.8-10.8)
[2025-08-20 06:29] LABS: INR 1.2 (0.9-1.1); Prothrombin Time 12.4 Seconds (9.0-12.0)
[2025-08-20 06:57] LABS: Anion Gap 4.0 (3-11); Blood Urea Nitrogen 23.0 mg/dl (6-23); Calcium 8.7 mg/dl (8.6-10.3); Carbon Dioxide 27.0 mmol/L (21-32); Chloride 105.0 mmol/L (98-107); Creatinine Clr Calc Pharmacy 57.6 ml/min; Glucose 109.0 mg/dl (70-99(Fasting)); Magnesium 2.0 mg/dl (1.7-2.4); Potassium 4.6 mmol/L (3.5-5.1); Sodium 136.0 mmol/L (136-145)
[2025-08-20 08:04] VITALS: BP 132/80; TEMP 98.4; O2SAT 93
--- NOTE | 2025-08-20 08:41 | XRay Report ---
EXAM: XR chest 1V portable CLINICAL HISTORY: Vol overload. TECHNIQUE: An X-ray image of the chest was obtained in AP projection. COMPARISON: 08/19/2025 X-ray. FINDINGS: Pulmonary Parenchyma: Congested bronchovascular markings (unchanged). Regression of the previous right lower lung zone opacity. Left lower lung zone atelectatic bands (unchanged since last study). No evidence of new consolidation, collapse, or focal opacities. No pulmonary nodules are identified. No evidence of pleural effusion or pleural thickening. Heart and Mediastinum: Cardiomegaly, accentuated with AP projection. No mediastinal widening or masses. No hilar or mediastinal lymphadenopathy. A dual-lead cardiac pacemaker is in place. Bony Thorax: The bony thorax appears intact, without fractures or deformities. Soft Tissues: Soft tissues overlying the chest wall are unremarkable. IMPRESSION: 1. Congested bronchovascular markings (unchanged). 2. Regression of the previous right lower lung zone opacity. 3. Cardiomegaly. Electronically signed by Rudy Felipe 08-20-2025 08:40 AM
[2025-08-20] MEDS: POLYETHYLENE (MIRALAX) 17 GM PACK PO PRN (08:47)
--- NOTE | 2025-08-20 09:28 | Discharge Summary ---
Discharge Summary Date of Service August 20, 2025 Principal Dx & Hospital Course #1 = Principal Diagnosis (1) Acute on chronic heart failure with preserved ejection fraction (HFpEF): (2) Status post repair of ventral hernia: (3) Acute postoperative respiratory insufficiency: (4) Chronic kidney disease, stage 3a: (5) Hypertension: Plan Patient is 80-year-old gentleman who initially presented for ventral hernia repair. Postoperatively, continued to have some hypoxia. Chest imaging consistent with some volume overload. Patient was cared for in the hospital. Monitor on telemetry there was no significant arrhythmias noted. Given IV Lasix. Patient responded to this treatment well. He is able to be titrated off oxygen. On the morning of discharge his vital signs are stable. Saturation were in the mid 90s on room air. Other laboratory studies were stable. Otherwise his postoperative course has been uneventful. He will be able to discharge home to continue his recuperation and follow-up with his outpatient p danii. Notes For Next Care Provider Follow-up with surgery as coordinated Medication Changes From Visit None Admission HPI Per Admitting Provider Patient is 80 year old male with PMH HTN, dyslipidemia, CKD III, SSS s/p pacemaker, patent foramen ovale, history of CVA, anticoagulated on warfarin, chronic HFpEF, BPH seen at request of general surgery and anesthesia for postop hypoxia. S/P ventral hernia repair today by Dr Caruso. Post op in [facility] patient unable to be weaned from oxygen and becomes hypoxic on room air despite incentive spirometry efforts. Otherwise vital stable. Patient has received 2 L IVF. Patient denies chest pain, shortness of breath. He reports he uses stationary exercise bike for 10 minutes and treadmill for 10 minutes without any shortness of breath or chest pain. Denies cough. Reports chronic rhinorrhea in am the resolves with blowing nose in am. Reports history of right tibia fracture January 2025 and has subsequent chronic RLE edema. States several months ago having LE edema and was started on Lasix daily however patient reports didn't feel had much difference in edema so he stopped taking it. Reports last BM yesterday. States post op having some abdominal pain with movement, otherwise at rest reports is comfortable. Denies fever/chills, diaphoresis, N/V/D/C, WEINER, dizziness, syncope, orthopnea, palpitations, cough, sore throat, choking, paresthesias, weakness, rashes, urinary symptoms. Patient to be admitted for further workup and treatment. Admission Exam Per Admitting Provider See H&P Discharge Exam Constitutional: Alert HEENT: Mucous membranes moist. Lungs: Good airflow, few crackles at bases, no wheezes CV: S1-S2, regular Abdomen: Soft, mild incisional tenderness, binder in place Extremities: No significant edema Neuro: No focal deficits Psych: Cooperative, normal mood Updated Medication List Medication Instructions Recorded Confirmed Type pravastatin 10 mg tablet 10 mg PO HS 11/27/23 08/19/25 History tamsulosin 0.4 mg capsule 0.4 mg PO HS 11/27/23 08/19/25 History warfarin 7.5 mg tablet 7.5 mg PO UD 11/27/23 08/19/25 History acetaminophen 325 mg tablet 650 mg PO Q4 PRN Pain 01/30/25 08/19/25 History lisinopril 5 mg tablet 5 mg PO QAM 01/30/25 08/19/25 History oxycodone 5 mg tablet 5 - 10 mg (1 - 2 x 5 mg) PO 08/19/25 Rx .[id number] PRN pain, for initial therapy, max 6 tabs per day #15 tabs Hospital Stay Data Consultations 08/19/25 14:33 Consult Hospitalist Stat 08/19/25 17:43 Consult General Surgery Routine Procedures Performed Operation Date: 08/19/25 07:30 Actual Procedures p Robotic Assisted Incarcerated Ventral Hernia Repair(Not Applicable) - Haim Caruso, DO, FACS Diagnostic Imagining Performed Reviewed imaging, laboratory and diagnostic studies. Pertinent findings as below. CBC within normal ranges INR 1.2 Electrolytes within normal range Creatinine 1.1 Personally reviewed chest x-ray: Appears significantly improved when compared to yesterday as far as pulmonary congestion Pending Results Patient Have Any Pending Studies at Discharge: No Discharge Instructions Given to Patient (Per Discharging Provider) SPECIAL CARE INSTRUCTIONS: * You have skin glue over your incisions called dermabond. you may shower with this on. It will tend to dissolve and fall off within a couple weeks. Do not pick at the skin glue * Please continue to wear your abdominal binder as you tolerate until your follow up appointment, mostly when up and moving around. You may remove it to shower and for breaks from it if needed. * You may resume your Coumadin on sunday08/20/25 * You may shower 08/20 . NO soaking in pools or baths for 2 weeks * No lifting greater than 10lbs. No strenuous exercise until cleared by surgeon. Light walking is accepted. * No driving while taking narcotic pain medication; wait at least 3 days * No drinking alcohol while taking narcotic pain medication * May use Tylenol over the counter for pain as tolerated. Do not exceed 3grams of Tylenol per 24 hours * Expect some swelling and bruising. * Diet- you may resume your regular diet Call your doctor if: * Temperature above 101 degrees, nausea/vomiting, fever/chills * Pain not relieved by pain medicine ordered * There is increased drainage or redness from any incision * You have any unanswered questions or concerns [phone]. FOLLOW UP VISIT: If not already scheduled, please call the office for a follow-up visit. Office Total Time Total Time Spent Total Time Spent (In Minutes): 24
[2025-08-20 11:25] VITALS: PULSE 79
--- NOTE | 2025-08-20 12:02 | Surgery Progress Note ---
Date of Service August 20, 2025 Assessment & Plan (1) Status post repair of ventral hernia: Plan: POD#1 robotic ventral hernia repair In post op recovery developed hypoxia with inability to wean to room air initially pt has been admitted and hospitalist appreciated for their help with hypoxia management he is on room air today and feeling well no concerns from abdominal standpoint stable for discharge to home. instructions reviewed. f/u with dr. sood in 2 weeks Admission and Anticipated Discharge Date Admission Date: August 19, 2025 Subjective Patient reports abdominal pain is tolerable. He is eating without nausea/vomiting. Denies shortness of breath or chest pain. Working on IS and is on room air. Physical Exam Physical Exam: awake/alert, no distress Respiratory: normal respiratory effort Gastrointestinal (Abdomen): Inspection/Auscultation: + abdominal surgical incision (c/d/i); abdomen not distended Percussion/Palpation: + abdomen tender (mild discomfort diego incisionally) and abdomen soft wearing abdominal binder Results & Data Vital Signs (Past 12 Hours) Vital Signs Temp Pulse Pulse Pulse Resp BP BP 08/20/25 11:16 98.4 F 60 79 19 155/84 H 132/80 08/20/25 08:02 98.4 F 60 19 132/80 08/20/25 07:59 61 08/20/25 02:40 98.1 F 60 19 137/81 Pulse Ox O2 Del Method 08/20/25 11:16 93 08/20/25 08:02 93 Room Air 08/20/25 07:59 08/20/25 02:40 95 Room Air PG Care Time/CCT Total # of Minutes Spent Total Time Spent with Patient: Total time spent is greater than 50% in coordination of care (as documented) at patient's floor/unit and/or counseling patient: Coding Level of Care Code 64762 Post Operative Follow-Up Diagnoses Status post repair of ventral hernia Z98.890; Z87.19
--- NOTE | 2025-08-20 12:53 | Electrocardiogram Report ---
Test Reason : Blood Pressure : */* mmHG Vent. Rate : 60 BPM Atrial Rate : 60 BPM P-R Int : 288 ms QRS Dur : 104 ms QT Int : 404 ms P-R-T Axes : * -46 3 degrees QTcB Int : 404 ms Atrial-paced rhythm with prolonged AV conduction Left anterior fascicular block Minimal voltage criteria for LVH, may be normal variant ( R in aVL ) Abnormal ECG When compared with ECG of 07-Aug-2025 14:03, T wave inversion now evident in Inferior leads Confirmed by Martin Connell ([id number]) on 08/20/2025 12:53:08 PM Referred By: Haim Caruso Confirmed By: Martin Connell
== END 2025-08-20 12:59 | disposition home or self-care (01) ==
LOC: ASU 05:42 → SUATTDRO 15:44 → 4W 15:44 → INTOOBSV 15:44